=== PATIENT | female | born 1930 | race Caucasian/White ===

== ENCOUNTER 2017-12-19 12:19 | Emergency (ER) | payer MEDICARE, OTHER ==
[2017-12-19 12:59] VITALS: RESP 18
--- NOTE | 2017-12-19 13:42 | ED ---
General Adult HPI - General Chief complaint: Urogenital Stated complaint: Cannot Urinate,Prev UTI Time Seen by Provider: 12/19/17 13:03 Source: patient Mode of arrival: wheelchair Limitations: no limitations - History of Present Illness Initial comments: Kathy is an 87-year-old female with a past medical history of known uterine prolapse for which she has not sought any care patient was seen by her primary care physician on Wednesday and diagnosed with a urinary tract infection and started on PO Cipro. She presents to the ER today stating that she feels her uterus is prolapsing more often than previous and causing her to have difficulty urinating. She feels that this is contributing to her urinary tract infection. Patient reports a prior to arrival in the emergency Department her uterus had been prolapsed for a number of hours and she felt as though she cannot urinate. She states that upon arrival in the emergency department she was able to urinate and feels relief. Patient states that her uterus has prolapsed intermittently for a number of years, she has never seen a medical art therapist to discuss this problem with a physician. She's never been fitted for considered a pessary device. She's never had any surgical interventions. Patient reports that she had 3 live vaginal births and one miscarriage in first trimester all greater than 50 years ago. Patient cannot recall when her last Pap or gynecology visit was but reports it was multiple years ago. Patient states that she is just at her wits end with this problem and that she is just very upset by the medics got to the last of her nerves which is what prompted her to come to the ER today. - Related Data Allergies Allergy/AdvReac Type Severity Reaction Status Date / Time celecoxib [From Celebrex] Allergy Rash/Hives Verified 12/19/17 12:59 Penicillins Allergy Unknown Verified 12/19/17 12:59 Review of Systems ROS Statement: Those systems with pertinent positive or pertinent negative responses have been documented in the HPI. ROS Other: All systems not noted in ROS Statement are negative. Constitutional: Denies: fever Cardiovascular: Denies: chest pain Endocrine: Denies: fatigue Gastrointestinal: Reports: constipation (chronic for years). Denies: abdominal pain, nausea, vomiting Genitourinary: Reports: urgency, dysuria, other (uterine prolapse) Skin: Denies: rash Neurological: Denies: headache Psychiatric: Reports: anxiety Hematological/Lymphatic: Denies: easy bleeding, easy bruising Past Medical History Past Medical History: Chest Pain / Angina, Hypertension, Osteoarthritis (OA) History of Any Multi-Drug Resistant Organisms: None Reported Additional Past Surgical History / Comment(s): D& C Past Psychological History: No Psychological Hx Reported Smoking Status: Never smoker Past Alcohol Use History: None Reported Past Drug Use History: None Reported General Exam Limitations: no limitations General appearance: alert, in no apparent distress Head exam: Present: atraumatic, normocephalic Eye exam: Present: normal appearance, PERRL ENT exam: Present: normal exam Respiratory exam: Present: normal lung sounds bilaterally Cardiovascular Exam: Present: regular rate GI/Abdominal exam: Present: soft. Absent: distended, tenderness Rectal exam: Present: normal inspection External exam: Present: other (Upon external vaginal exam cervix was noted to be visible at the vaginal introitus. Cervix was dry with irritated mucosa. Surgical lube was applied and the uterus was reduced into the vagina.) Extremities exam: Present: normal inspection Neurological exam: Present: alert, oriented X3 Psychiatric exam: Present: anxious Skin exam: Present: warm, dry Course Vital Signs 12/19/17 12/19/17 12:53 14:06 Temperature 98.9 F Pulse Rate 74 78 Respiratory 18 18 Rate Blood Pressure 160/74 143/70 O2 Sat by Pulse 96 98 Oximetry Medical Decision Making - Medical Decision Making The patient was seen and evaluated, history was obtained from the patient as well as her and daughter bedside Patient with a long-standing history of untreated and self diagnosed uterine prolapse Patient with a diagnosis of urinary tract infection been on ciprofloxacin since Wednesday, reports having difficulty urinating due to uterine prolapse Will obtain a urinalysis and culture as well as CBC and BMP to ensure that uterine prolapse is not causing any postrenal obstructive uropathy Pelvic exam does reveal a prolapsed cervix, cervical mucosa is dry and irritated. Sterile lubricant was applied and the cervix was easily reduced without any pain. No vaginal bleeding was noted. I discussed with the patient that recurrent cervical prolapse can increase the risk of cervical cancer. In addition she needs to follow up with gynecology for further evaluation of her prolapse and discussion of treatment options for prolapse. The patient was educated on how to reduce the uterine prolapse. Advised her that she can apply lubrication to her cervix and applied direct pressure. Advised her that if this causes too much pain she can return to the emergency department for reevaluation. This plan was also discussed with the patient's daughter who is agreeable. Urinalysis reveals leukoesterase and 112 white blood cells, however there is significant contamination with squamous epithelium, will plan to continue oral Cipro and await cultures. The patient will be referred to gynecology for outpatient follow-up All questions pertaining to care were answered to the best of my ability and the patient was discharged home in stable condition. - Lab Data Result diagrams: 12/19/17 14:10 12/19/17 14:10 Lab Results 12/19/17 12/19/17 12/19/17 Range/Units 13:31 14:10 14:10 WBC 7.6 (3.8-10.6) k/uL RBC 4.10 (3.80-5.40) m/uL Hgb 11.8 (11.4-16.0) gm/dL Hct 35.9 (34.0-46.0) % MCV 87.4 (80.0-100.0) fL MCH 28.7 (25.0-35.0) pg MCHC 32.9 (31.0-37.0) g/dL RDW 12.5 (11.5-15.5) % Plt Count 360 (150-450) k/uL Neutrophils % 74 % Lymphocytes % 16 % Monocytes % 7 % Eosinophils % 2 % Basophils % 0 % Neutrophils # 5.6 (1.3-7.7) k/uL Lymphocytes # 1.2 (1.0-4.8) k/uL Monocytes # 0.5 (0-1.0) k/uL Eosinophils # 0.2 (0-0.7) k/uL Basophils # 0.0 (0-0.2) k/uL Sodium 137 (137-145) mmol/L Potassium 4.0 (3.5-5.1) mmol/L Chloride 103 (98-107) mmol/L Carbon Dioxide 23 (22-30) mmol/L Anion Gap 11 mmol/L BUN 19 H (7-17) mg/dL Creatinine 0.78 (0.52-1.04) mg/dL Est GFR (CKD-EPI)AfAm 79 (>60 ml/min/1.73 sqM) Est GFR (CKD-EPI)NonAf 69 (>60 ml/min/1.73 sqM) Glucose 104 H (74-99) mg/dL Calcium 9.5 (8.4-10.2) mg/dL Urine Color Yellow Urine Appearance Cloudy H (Clear) Urine pH 6.0 (5.0-8.0) Ur Specific [place] 1.010 (1.001-1.035) Urine Protein Trace H (Negative) Urine Glucose (UA) Negative (Negative) Urine Ketones Negative (Negative) Urine Blood Negative (Negative) Urine Nitrite Negative (Negative) Urine Bilirubin Negative (Negative) Urine Urobilinogen <2.0 (<2.0) mg/dL Ur Leukocyte Esterase Large H (Negative) Urine RBC 4 (0-5) /hpf Urine WBC 112 H (0-5) /hpf Ur Squamous Epith Cells 17 H (0-4) /hpf Amorphous Sediment Occasional H (None) /hpf Urine Bacteria Rare H (None) /hpf Urine Mucus Rare H (None) /hpf Disposition Clinical Impression: Urinary tract infection, Uterine prolapse Disposition: HOME SELF-CARE Condition: Good Instructions: Urinary Tract Infection in Women (ED) Is patient prescribed a controlled substance at d/c from ED?: No Referrals: Katerina Reed DO [Primary Care Provider] - 1-2 days Jaquan Jones MD [STAFF PHYSICIAN] - 1-2 days Berkley Guadalupe MD [STAFF PHYSICIAN] - 1-2 days Myra West MD [STAFF PHYSICIAN] - 1-2 days Twyla Gaona DO [Doctor of Osteopathic Medicine] - 1-2 days Time of Disposition: 14:49
[2017-12-19 14:07] VITALS: BP 143/70
[2017-12-19 14:22] LABS: Amorphous Sediment,Urine Occasional /hpf; Appearance,Urine Cloudy (Clear); Bacteria,Urine Rare /hpf; Bilirubin,Urine Negative (Negative); Blood,Urine Negative (Negative); Color,Urine Yellow; Glucose,Urine (UA) Negative (Negative); Ketones,Urine Negative (Negative); Leukocyte Esterase,Urine Large (Negative); Mucus,Urine Rare /hpf; Nitrite,Urine Negative (Negative); Protein,Urine Trace (Negative); RBC,Urine 4 /hpf (0-5); Squamous Epithelial Cell,Urine 17 /hpf (0-4); Urobilinogen,Urine <2.0 mg/dL (<2.0); WBC,Urine 112 /hpf (0-5)
[2017-12-19 14:27] LABS: Basophils % (A) 0 %; Eosinophils # (A) 0.2 k/uL (0-0.7); Eosinophils % (A) 2 %; HCT 35.9 % (34.0-46.0); HGB 11.8 gm/dL (11.4-16.0); Lymphocytes # (A) 1.2 k/uL (1.0-4.8); Lymphocytes % (A) 16 %; MCH 28.7 pg (25.0-35.0); MCHC 32.9 g/dL (31.0-37.0); MCV 87.4 fL (80.0-100.0); Monocytes # (A) 0.5 k/uL (0-1.0); Monocytes % (A) 7 %; Neutrophils # (A) 5.6 k/uL (1.3-7.7); Neutrophils % (A) 74 %; Platelet Count 360 k/uL (150-450); RDW 12.5 % (11.5-15.5); WBC 7.6 k/uL (3.8-10.6)
[2017-12-19 14:40] LABS: Calcium 9.5 mg/dL (8.4-10.2)
[2017-12-19 15:11] VITALS: PULSE 76; TEMP 98.2
== END 2017-12-19 15:11 | disposition home or self-care (01) ==
LOC: EC 12:19
DX: N39.0 Urinary tract infection, site not specified (principal); N81.4 Uterovaginal prolapse, unspecified; Z88.0 Allergy status to penicillin; Z88.8 Allergy status to other drugs, medicaments and biological substances
CPT/HCPCS: 36415; 80048; 81001; 85025; 87086; 99283